=== PATIENT | male | born 1995 | race Caucasian/White ===

== ENCOUNTER 2016-10-30 02:04 | Emergency (ER) | payer OTHER ==
[2016-10-30 06:17] VITALS: BP 133/76
--- NOTE | 2016-10-30 07:58 | RAD ---
HISTORY: Left upper extremity pain COMPARISON: None. TECHNIQUE: Multiple transverse and longitudinal ultrasound images were obtained of the veins of the right lower extremity upper extremity using grayscale, color Doppler, and spectral Doppler imaging with and without compression and with augmentation. FINDINGS: VEINS: The axillary, brachial, basilic and cephalic are compressible throughout their course, with normal flow on color Doppler imaging and normal response to augmentation on spectral Doppler imaging. The subclavian vein exhibits appropriate augmentation and phasicity. The radial and ulnar veins are compressible. Evidence of adequate flow is identified in the right internal jugular and subclavian vein as well. SOFT TISSUES: Grossly normal. IMPRESSION: No sonographic evidence of deep vein thrombosis.
--- NOTE | 2016-11-27 23:23 | ED ---
Dougie Bernard Aidan, scribed for Ellis Mcnair on 10/30/16 at 0323 . Upper Extremity Pain - HPI Summary HPI Summary: 20 y/o male presents to the Ed with a complaint of acute, constant, moderate, left arm pain/numbness that began 4 days ago. During onset, the pain was localized in the left forearm; however, it has spread down the left arm since onset. Motrin did not alleviate the sensation. Associated symptoms include intermittent episodes of left arm tremors. 2 weeks ago, he was bitten by his friends dog; however, the bite did not break skin. Today, he saw a physician at [facility] and is here for a re-evaluation. - History of Current Complaint Chief Complaint: EDExtremityUpper Stated Complaint: LEFT ARM PAIN Time Seen by Provider: 10/30/16 02:35 Hx Obtained From: Patient Mechanism Of Injury: Unknown - however, 2 weeks ago, the Pt was bitten by his friend's dog. The bite did not break his skin though. Onset/Duration: Started Days Ago, Still Present Timing: Constant, Lasting Days Severity Initially: Moderate Severity Currently: Moderate Pain Location: Arm - left arm Character: Spasmodic - pain and numbness, left arm tremors Aggravating Factor(s): Other - unknown Alleviating Factor(s): Other - unknown, however, motrin did not alleviate sx Associated Signs & Symptoms: Positive: Other - left arm tremors Related History: Dominant Hand Right - Allergies/Home Medications Allergies/Adverse Reactions: Allergies Allergy/AdvReac Type Severity Reaction Status Date / Time No Known Allergies Allergy Verified 05/31/14 09:15 PMH/Surg Hx/FS Hx/Imm Hx - Immunization History Date of Tetanus Vaccine: unknown Infectious Disease History: No Infectious Disease History: Reports: Traveled Outside the [place] in Last 30 Days - [place] - Family History Known Family History: Positive: Hypertension - Social History Occupation: Student Lives: Alone Alcohol Use: Occasionally Alcohol Amount: +ETOH presently Substance Use Type: Reports: None, Other Substance Use Comment - Amount & Last Used: unk Smoking Status (MU): Never Smoked Tobacco Review of Systems Constitutional: Negative Eyes: Negative ENT: Negative Cardiovascular: Negative Respiratory: Negative Gastrointestinal: Negative Genitourinary: Negative Positive: Arthralgia - left arm pain/numbness, left arm tremors. Negative: Decreased ROM, Edema Skin: Negative Neurological: Negative Psychological: Normal All Other Systems Reviewed And Are Negative: Yes Physical Exam Triage Information Reviewed: Yes Vital Signs On Initial Exam: Initial Vitals Temp Pulse Resp BP Pulse Ox 97.7 F 86 20 134/79 100 10/30/16 02:09 10/30/16 02:09 10/30/16 02:09 10/30/16 02:09 10/30/16 02:09 Vital Signs Reviewed: Yes Appearance: Positive: Well-Appearing, No Pain Distress Skin: Positive: Warm, Skin Color Reflects Adequate Perfusion, Dry Head/Face: Positive: Normal Head/Face Inspection Eyes: Positive: EOMI, NIKA ENT: Positive: Normal ENT inspection Neck: Positive: Supple, Nontender Respiratory/Lung Sounds: Positive: Clear to Auscultation, Breath Sounds Present Cardiovascular: Positive: RRR, Pulses are Symmetrical in both Upper and Lower Extremities Abdomen Description: Positive: Nontender, Soft Bowel Sounds: Positive: Present Musculoskeletal: Positive: Strength/ROM Intact Neurological: Positive: Sensory/Motor Intact, Alert, Oriented to Person Place, Time Psychiatric: Positive: Affect/Mood Appropriate AVPU Assessment: Alert Diagnostics - Vital Signs Vital Signs Temp Pulse Resp BP Pulse Ox 10/30/16 02:09 97.7 F 86 20 134/79 100 - Laboratory Lab Statement: Any lab studies that have been ordered have been reviewed, and results considered in the medical decision making process. - Ultrasound No standard instances Ultrasound Interpretation: No Acute Changes - VENOUS DOPPLER STUDY IMPRESSION: NO DVT Ultrasound Interpretation Completed By: Radiologist - [employer] CONSULTANT Course/Dx - Diagnoses Provider Diagnoses: Musculoskeletal arm pain Discharge - Discharge Plan Condition: Stable Disposition: HOME Discharge Disposition Comment: Please follow up with your primary care physician in 3 days. Patient Education Materials: Arm Pain (ED) The documentation as recorded by the Dougie funk Aidan accurately reflects the service I personally performed and the decisions made by Tabby horton Emmanuel.
== END 2016-10-30 06:10 | disposition home or self-care (01) ==
LOC: ED 02:04
DX: M79.602 Pain in left arm (principal); R25.1 Tremor, unspecified
CPT/HCPCS: 99282